=== PATIENT | male | born 1950 | race Caucasian/White ===

== ENCOUNTER 2017-12-21 06:35 | Day surgery (SDC) | payer MEDICARE, BC ==
[2017-12-21] MEDS: Lactated Ringers 1,000 ML IV SCH (07:16)
[2017-12-21] MEDS ORDERED: Propofol 200 MG/20 ML SDV ONE (07:31)
[2017-12-21] MEDS ORDERED: Midazolam 1 MG/ML 2 ML SDV ONE (07:32)
[2017-12-21] MEDS ORDERED: fentaNYL 100 MCG/2 ML SDV ONE (07:32)
--- NOTE | 2017-12-21 10:20 | PCM.CONS ---
H&P History of Present Illness - General Date of Service: 12/21/17 Source of Information: Patient, Family, Old Records, Provider, RN Notes Reviewed History Limitations: Reports: No Limitations - History of Present Illness Initial Comments - Free Text/Narative: Mr. Russ is a 67-year-old gentleman who I been asked to see by Mr. Mendoza and Dr. Brady for further suggestions concerning evaluation and management of premature atrial complexes. Patient had been scheduled for colonoscopy today which went well, during the procedure he was noted to have frequent premature atrial complexes occurring in a bigeminal pattern. EKG does show some mild ST segment elevation in the anteroseptal leads as well as ST segment depression with T-wave inversion in the lateral and inferior leads. When compared to previous EKGs from a stress test done 10 years ago there is no significant change. He has been feeling well, denies chest pain, change in exercise tolerance, palpitations, lightheadedness, or significant shortness of breath. He does have risk factors for coronary artery disease including hypertension, hypercholesterolemia, and a positive family history. - Related Data Allergies/Adverse Reactions: Allergies Allergy/AdvReac Type Severity Reaction Status Date / Time No Known Allergies Allergy Verified 12/21/17 07:16 Home Medications: Home Meds Ascorbate Calcium/Bioflavonoid [Kaylee-C 500 MG] 500 mg PO DAILY 08/28/14 [ History] Cholecalciferol (Vitamin D3) [Vitamin D3] 2,000 unit PO DAILY 08/28/14 [History] Gluc 2KCl/Chondr/Gavino Hy/Hy Ac [Glucosamine & Chondroitin Cap] 1 each PO DAILY 08/28/14 [History] Losartan Potassium [Cozaar] 100 mg PO DAILY 08/28/14 [History] Multivitamin with Minerals [Multiple Vitamin] 1 each PO BID 08/28/14 [History] Saw [place] 1 tab PO DAILY 08/28/14 [History] Sildenafil [Revatio] 20 mg PO DAILY PRN 08/28/14 [History] Simvastatin [Zocor] 40 mg PO DAILY 08/28/14 [History] Triamterene/Hydrochlorothiazid [Dyazide 37.5-25] 1 cap PO DAILY 08/28/14 [ History] Oxybutynin [Ditropan XL] 15 mg PO DAILY 05/01/18 [History] Past Medical History Cardiovascular History: Reports: Hypertension Respiratory History: Reports: Sleep Apnea Genitourinary History: Reports: Other (See Below) Other Genitourinary History: bladder spasm ed Musculoskeletal History: Reports: Gout, Other (See Below) Other Musculoskeletal History: fx right arm Endocrine/Metabolic History: Reports: Obesity/BMI 30+ - Infectious Disease History Infectious Disease History: Reports: Chicken Pox, Measles - Past Surgical History Musculoskeletal Surgical History: Reports: None Social & Family History - Tobacco Use Smoking Status *Q: Former Smoker Years of Tobacco use: 7 Used Tobacco, but Quit: Yes Month/Year Tobacco Last Used: 0 Second Hand Smoke Exposure: No - Caffeine Use Caffeine Use: Reports: Coffee - Alcohol Use Days Per Week of Alcohol Use: 1 Number of Drinks Per Day: 2 Total Drinks Per Week: 2 - Recreational Drug Use Recreational Drug Use: No H&P Review of Systems - Review of Systems: Review Of Systems: See Below General: Denies: Fever, Chills, Weakness Pulmonary: Reports: No Symptoms Cardiovascular: Reports: No Symptoms Gastrointestinal: Reports: No Symptoms Exam - Exam Exam: See Below - Vital Signs Vital Signs: Last Vital Signs Temp 96.3 F 12/21/17 08:40 Pulse 56 L 12/21/17 09:05 Resp 15 12/21/17 09:32 BP 124/78 12/21/17 09:32 Pulse Ox 95 12/21/17 09:32 Weight: 278 lb - Exam General: Alert, Oriented, Cooperative Neck: Supple, Trachea Midline, +2 Carotid Pulse wo Bruit Lungs: Clear to Auscultation, Normal Respiratory Effort Cardiovascular: Regular Rate, Regular Rhythm, Normal S1, Normal S2. No: Systolic Murmur, Diastolic Murmur GI/Abdominal Exam: Soft, Non-Tender, No Organomegaly, No Distention Extremities: Non-Tender, No Pedal Edema - Patient Data Lab Results Last 24 hrs: Laboratory Results - last 24 hr 12/21/17 12/21/17 12/21/17 Range/Units 08:21 08:22 08:22 WBC 7.4 (4.5-11.0) K/uL RBC 5.13 (4.30-5.90) M/uL Hgb 15.5 H (12.0-15.0) g/dL Hct 44.4 (40.0-54.0) % MCV 87 (80-98) fL MCH 30 (27-31) pg MCHC 35 (32-36) % Plt Count 259 (150-400) K/uL Sodium 143 (140-148) mmol/L Potassium 3.7 (3.6-5.2) mmol/L Chloride 106 (100-108) mmol/L Carbon Dioxide 28 (21-32) mmol/L Anion Gap 8.8 (5.0-14.0) mmol/L BUN 13 (7-18) mg/dL Creatinine 1.1 (0.8-1.3) mg/dL Est Cr Clr Drug Dosing 69.13 mL/min Estimated GFR (MDRD) > 60 (>60) Glucose 119 H (74-106) mg/dL Calcium 8.7 (8.5-10.1) mg/dL Magnesium 1.9 (1.8-2.4) mg/dL TSH, Ultra Sensitive 2.455 (0.358-3.740) uIU/mL Result Diagrams: 12/21/17 08:22 12/21/17 08:21 Consult PN Assessment/Plan Procedures: Procedures COLONOSCOPY AND BIOPSY (08/30/14) Problem List Initiated/Reviewed/Updated: Yes Plan: ASSESSMENT AND RECOMMENDATIONS PREMATURE ATRIAL COMPLEXES-noted on monitoring during colonoscopy, occurring in a bigeminal pattern for much of the time that he was monitored. He has no history of significant cardiac disease. EKG obtained following the procedure does appear to be abnormal but not significantly change from EKG 10 years ago. He has no significant symptoms with activity or at rest. Laboratory studies were obtained and show no significant electrolyte abnormalities, anemia, and TSH was within normal range. -Follow-up with primary care provider within one week -No further evaluation required at this time Requesting Provider: XIAO ELIAS Date Consult Requested: 12/21/17 Reason for Consult: Premature atrial complexes Patient History Reviewed: Yes Notified Requestor: Yes
--- NOTE | 2017-12-21 11:00 | OR ---
DATE OF PROCEDURE: 12/21/2017 PREOPERATIVE DIAGNOSIS: History of tubular adenoma. POSTOPERATIVE DIAGNOSIS: Unremarkable colonoscopy, history of tubular adenoma. PROCEDURE: Colonoscopy to the cecum. SURGEON: Samuel Brady MD ANESTHESIA: IV anesthesia with monitored anesthesia care. INDICATION: This 67-year-old white male is here for a colonoscopy. His last colonoscopic exam was done about 3 years ago, where a tubular adenoma was found. I counseled him for the procedure including risks and alternatives, and he gave his informed consent to proceed. DESCRIPTION OF PROCEDURE: The patient was placed in the left lateral decubitus position. IV anesthesia was administered by the Anesthesia Service. Time-out was held. A rectal exam was performed, which was unremarkable. The flexible video Olympus colonoscope was introduced through his anus, up his rectum, and out his colon, all the way to the cecum. Once the cecum was reached, the scope was slowly withdrawn, examining the mucosa throughout. No mucosal abnormalities were noted. The scope was retroflexed in the rectum with the distal rectum appearing unremarkable. The scope was straightened and removed. He tolerated the procedure well. Samuel Brady MD /[id number]
== END 2017-12-21 10:35 | disposition home or self-care (01) ==
LOC: JP.SDS 06:35
PROVIDERS: ATTEND Surgery
DX: Z12.11 Encounter for screening for malignant neoplasm of colon (principal); I10 Essential (primary) hypertension; I25.10 Atherosclerotic heart disease of native coronary artery without angina pectoris; M10.9 Gout, unspecified; N32.89 Other specified disorders of bladder; E66.9 Obesity, unspecified; G47.33 Obstructive sleep apnea (adult) (pediatric); Z99.89 Dependence on other enabling machines and devices; Z79.899 Other long term (current) drug therapy; Z88.8 Allergy status to other drugs, medicaments and biological substances; Z87.891 Personal history of nicotine dependence; Z86.010 Personal history of colon polyps
CPT/HCPCS: 36415; 80048; 83735; 84443; 85027; 93005; J2250; J2704; J3010; J7120

== ENCOUNTER 2023-01-25 07:39 | Day surgery (SDC) | payer MEDICARE, BC ==
[2023-01-25] MEDS ORDERED: Propofol 200 MG/20 ML SDV ONE (08:02)
[2023-01-25] MEDS ORDERED: Midazolam 1 MG/ML 2 ML SDV ONE (08:02)
[2023-01-25] MEDS ORDERED: fentaNYL 50 MCG/ML SDV ONE (08:02)
[2023-01-25] MEDS ORDERED: Lactated Ringers 1,000 ML IV SCH (08:15)
== END 2023-01-25 10:20 | disposition home or self-care (01) ==
LOC: JP.SDS 07:39
PROVIDERS: ATTEND Family Medicine
DX: Z12.11 Encounter for screening for malignant neoplasm of colon (principal); K64.4 Residual hemorrhoidal skin tags; I25.10 Atherosclerotic heart disease of native coronary artery without angina pectoris; I10 Essential (primary) hypertension; E78.00 Pure hypercholesterolemia, unspecified; Z86.010 Personal history of colon polyps; Z88.8 Allergy status to other drugs, medicaments and biological substances; Z79.899 Other long term (current) drug therapy
CPT/HCPCS: J2250; J2704; J3010; J7120